=== PATIENT | male | born 1960 | race African-American/Black ===

== ENCOUNTER 2021-06-18 21:18 | Emergency (ER) | payer OTHER, MEDICAID ==
[~2021-06-18] VITALS: Ht 180.3 cm; Wt 66.0 kg
[2021-06-18] MEDS ORDERED: IBUPROFEN 600MG TABLET PO STA (23:19)
[2021-06-18 23:44] VITALS: BP 130/80
[2021-06-19] MEDS ORDERED: NAPR-681 PO (03:24)
[2021-06-19] MEDS ORDERED: CIPR1DRO2 LEFT EAR (03:24)
== END 2021-06-19 03:34 | disposition home or self-care (01) ==
LOC: ER 21:18
DX: S00.93XA Contusion of unspecified part of head, initial encounter (principal); S69.91XA Unspecified injury of right wrist, hand and finger(s), initial encounter; Y04.0XXA Assault by unarmed brawl or fight, initial encounter; Y93.9 Activity, unspecified; Y92.89 Other specified places as the place of occurrence of the external cause; Y99.8 Other external cause status
CPT/HCPCS: 73140; 99284

== ENCOUNTER 2023-02-04 17:56 | Emergency (ER) | payer MEDICAID, OTHER ==
[~2023-02-04] VITALS: Ht 180.3 cm; Wt 69.3 kg
[~2023-02-04 17:56] MED LIST: CIPR1DRO2 LEFT EAR; NAPR-681 PO
[2023-02-04 20:33] VITALS: BP 133/63; PULSE 86; RESP 16; TEMP 98.7; O2SAT 100
[2023-02-04] MEDS ORDERED: AMOX-494 MT (20:35)
[2023-02-04] MEDS ORDERED: IBUP-2029 MT (20:35)
== END 2023-02-04 20:56 | disposition home or self-care (01) ==
LOC: ER 17:56
DX: K08.89 Other specified disorders of teeth and supporting structures (principal)
CPT/HCPCS: 99283

== ENCOUNTER 2023-07-20 14:32 | Emergency (ER) | payer MEDICAID, OTHER ==
[~2023-07-20] VITALS: Ht 180.3 cm; Wt 63.5 kg
[~2023-07-20 14:32] MED LIST changes: +AMOX-494 MT; +IBUP-2029 MT
[2023-07-20 14:47] VITALS: TEMP 98; O2SAT 100
[2023-07-20 15:38] LABS: BASOPHILS % 0.9 % (0.0-2.0); EOSINOPHILS % 0.8 % (0.0-5.0); HEMATOCRIT. 38.1 % (42.0-52.0); HEMOGLOBIN. 12.6 g/dL (14.0-18.0); LYMPHOCYTES % 22.1 % (20.0-50.0); MEAN CORPUSCULAR HEMOGLOBIN 28.6 pg (28.0-32.0); MEAN CORPUSCULAR HGB CONC 32.9 g/dL (31.0-37.0); MEAN CORPUSCULAR VOLUME 86.8 fL (80.0-94.0); MEAN PLATELET VOLUME 8.1 fl (7.4-10.4); MONOCYTES % 8.6 % (2.0-8.0); NEUTROPHILS % 67.6 % (40.0-76.0); PLATELET 212 x1000/uL (130-400); RED BLOOD CELL COUNT 4.39 mill/uL (4.7-6.1); RED CELL DISTRIBUTION WIDTH 14.4 % (11.6-14.6); WHITE BLOOD COUNT 6.8 x1000/uL (4.5-11.0)
[2023-07-20 15:42] LABS: CHLORIDE 105 mEq/L (98-107); POTASSIUM 4.4 mEq/L (3.5-5.1); SODIUM 140 mEq/L (136-145)
[2023-07-20 15:43] LABS: CALCIUM 8.1 mg/dL (8.7-10.4); CARBON DIOXIDE 32 mEq/L (21-32)
[2023-07-20 15:48] LABS: GLUCOSE 103 mg/dL (70-105); UREA NITROGEN BLOOD 14 mg/dL (9-23)
[2023-07-20 15:50] LABS: ALANINE AMINOTRANSFERASE 10 IU/L (10-49); ALBUMIN 4.1 g/dL (3.2-4.8); ASPARTATE AMINOTRANSFERASE 15 IU/L (<34); BILIRUBIN DIRECT 0.3 mg/dL (<=3.0); BILIRUBIN TOTAL 0.9 mg/dL (0.1-1.0); PROTEIN TOTAL 7.4 g/dL (6.0-8.3)
[2023-07-20 16:07] LABS: CLARITY URINE CLEAR (CLEAR); COLOR URINE YELLOW (YELLOW); GLUCOSE URINE NEGATIVE (NEGATIVE); KETONES URINE NEGATIVE (NEGATIVE); LEUKOCYTE ESTERASE URINE TRACE (NEGATIVE); NITRITE URINE NEGATIVE (NEGATIVE); OCCULT BLOOD URINE NEGATIVE (NEGATIVE); PROTEIN URINE TRACE (NEGATIVE); SPECIFIC GRAVITY URINE 1.025 (1.005-1.030)
[2023-07-20 16:08] LABS: TROPONIN I HIGH SENSITIVITY < 4 ng/L (3.0-53)
[2023-07-20 16:28] LABS: BACTERIA URINE 1+; SQUAMOUS EPITHELIAL CELL URINE FEW /lpf (RARE/1+)
[2023-07-20 16:29] LABS: RBC URINE 0-2 /hpf (0-2); WBC URINE 0-2 /hpf (0-2)
[2023-07-20] MEDS ORDERED: CLOT15CR27 TP (16:57)
[2023-07-20] MEDS ORDERED: DOXY100T2 MT (16:57)
[2023-07-20] MEDS: LIDOCAINE HCL 1% 20ML VIAL (Pyxis) INJ INFIL ONE (17:03)
[2023-07-20] MEDS: CEFTRIAXONE SODIUM 500MG VIAL IM ONE (17:03)
[2023-07-20 17:25] VITALS: BP 134/76; PULSE 78; RESP 16
== END 2023-07-20 17:26 | disposition home or self-care (01) ==
LOC: ER 14:32
DX: R21 Rash and other nonspecific skin eruption (principal)
CPT/HCPCS: 87491; 87591; 80076; 80048; 81003; 85025; 84484; 36415; 93005; 96372; 99284; J0696; J3490; Z7610 ×2